=== PATIENT | male | born 1940 | race Caucasian/White ===

== ENCOUNTER → 2019-08-10 | Outpatient (CLI) | payer MEDICARE ==
--- NOTE | 2019-08-10 14:32 | PCVCIMAG ---
APPROVED REPORT Study performed: 08/10/2019 13:34:34 Exam: Stress Echocardiogram Indication: Hyperlipidemia, Tachycardia Patient Location: Echo lab Stress Nurse: Paty Mayo RN Room #: 1 Status: routine Ht: 5 ft 7 in HR: 67 bpm BP: 136/74 mmHg Rhythm: NSR Procedure The patient underwent an Exercise Stress Test using the Carlos Protocol. Blood pressure, heart rate, and EKG were monitored. An Echocardiogram was performed by surgical instrument technician in four stages in quad fashion. At peak stress, four selected images were obtained and placed side by side with resting images for comparison. Stress Test Details Stress Test: Exercise stress testing was performed using a Carlos protocol. HR Resting HR: 67 bpmMax Heart Rate (APMHR): 140 bpm Max HR Achieved: 138 bpmTarget HR (85% APMHR): 119 bpm % of APMHR: 98 Recovery HR: 79 bpm HR response to stress: Normal HR response to stress BP Resting BP: 136/74 mmHg Max BP: 198/78 mmHg Recovery BP: 158/80 mmHg BP response to stress: Normal blood pressure response to stress. ECG Resting ECG: Sinus Rhythm Stress ECG: Sinus Rhythm ST Change: Non-ischemic Recovery ECG: Sinus Rhythm Clinical Reason for Termination: Maximal effort, Dyspnea Exercise duration: 5 min 00 sec Highest Stage Achieved: Stage 2: 2.5 mph at 12% grade. Exercise capacity: 7.00 METs Overall Exercise Capacity for Age: Average Stress ECG Conclusion ECG: Non-ischemic Clinical: Non-ischemic Pre-Stress Echo The resting Echocardiogram showed normal left ventricular contractility with an estimated Ejection Fraction of about >55%. The resting echocardiogram demonstrated normal wall motion in all wall segments. Normal wall motion in all segments on baseline images. Post-Stress Echo The stress Echocardiogram showed normal left ventricular contractility with an estimated Ejection Fraction of about 60-65%. Compared to rest, there were no stress-induced wall motion abnormalities. Normal augmentation of wall motion in all segments on post stress images. Clinical No clinical or ECG evidence for ischemia. Conclusion Clinical Response: Non-ischemic Exercise Capacity: Average Stress ECG Response: Non-ischemic Stress Echo Images: Non-ischemic The left ventricle is normal in size and wall thickness in both the rest and stress images. Normal stress echocardiogram with maximal exercise stress. Other Information Study Quality: Adequate <Conclusion> The left ventricle is normal in size and wall thickness in both the rest and stress images. Normal stress echocardiogram with maximal exercise stress.
== END | disposition home or self-care (01) ==
LOC: PCVCIMAG 13:12
PROVIDERS: ATTEND Family Medicine
DX: E78.2 Mixed hyperlipidemia (principal); I47.1 Supraventricular tachycardia; Z87.891 Personal history of nicotine dependence
CPT/HCPCS: 93325; 93351